=== PATIENT | male | born 1945 | race Caucasian/White ===

== ENCOUNTER 2020-08-01 13:48 | Inpatient (IN) | payer MEDICARE ==
[~2020-08-01] VITALS: Ht 175.3 cm; Wt 134.3 kg
[2020-08-01] MEDS ORDERED: SODIUM CHLORIDE 0.9% 1000ML 1,000 ML IV STA (14:05)
[2020-08-01 14:45] LABS: BASOPHILS # (AUTO) 0.1 (0.0-0.1); BASOPHILS % 0.7 % (0.0-1.0); EOSINOPHILS # (AUTO) 0.2 (0.0-0.4); EOSINOPHILS % 2.5 % (0.0-6.0); HEMATOCRIT 41.5 % (38.2-49.6); HEMOGLOBIN 13.7 g/dL (14.0-18.0); LYMPHOCYTES # (AUTO) 1.7 (1.0-3.2); LYMPHOCYTES % 19.5 % (18.0-39.1); MONOCYTES # (AUTO) 0.8 (0.2-0.8); MONOCYTES % 9.1 % (4.4-11.3); NEUTROPHILS % 67.9 % (38.7-80.0); PLATELET COUNT 146 x10e3/uL (140-360); RED BLOOD COUNT 4.15 x10e6/uL (4.3-5.7); RED CELL DISTRIBUTION WIDTH 13.7 % (11.7-14.4)
[2020-08-01] MEDS ORDERED: SODIUM CHLORIDE 0.9% 500ML 500 ML IV ONE (14:45)
[2020-08-01] MEDS ORDERED: PROAIR DIGIHAL90 MCG INH (14:59)
[2020-08-01] MEDS ORDERED: METFORMIN HCL500 M1 PO (14:59)
[2020-08-01] MEDS ORDERED: FUROSEMIDE40 MG PO (14:59)
[2020-08-01] MEDS ORDERED: PRAMIPEXOLE DIHY1 MG PO (14:59)
[2020-08-01] MEDS ORDERED: NORCO 10-325 T1 EACH PO (14:59)
[2020-08-01] MEDS ORDERED: ALLOPURINOL300 MG PO (14:59)
[2020-08-01] MEDS ORDERED: ZYTIGA250 MG PO (14:59)
[2020-08-01] MEDS ORDERED: DULOXETINE HCL20 MG PO (14:59)
[2020-08-01] MEDS ORDERED: CLONAZEPAM1 MG PO (14:59)
[2020-08-01] MEDS ORDERED: ESCITALOPRAM OX10 MG PO (14:59)
[2020-08-01] MEDS ORDERED: PREDNISONE5 MG PO (14:59)
[2020-08-01 15:02] LABS: ALANINE AMINOTRANSFERASE 13 IU/L (0-55); ALBUMIN/GLOBULIN RATIO 1.2 (0.8-2.0); ALKALINE PHOSPHATASE 54 IU/L (40-150); ANION GAP 15.9 mmol/L (8-16); BLOOD UREA NITROGEN 22 mg/dL (7-26); BUN/CREATININE RATIO 24 (6-25); CALCIUM 9.2 mg/dL (8.4-10.2); CARBON DIOXIDE 25 mmol/L (22-29); CHLORIDE 103 mmol/L (98-107); CREATINE KINASE 184 IU/L (30-200); CREATININE, SERUM 0.92 mg/dL (0.72-1.25); EST GLOMERULAR FILTRATION RATE > 60 ML/MIN (60-); GLUCOSE 100 mg/dL (74-118); MAGNESIUM 1.8 MG/DL (1.3-2.1); POTASSIUM 3.9 mmol/L (3.5-5.1); SODIUM 140 mmol/L (136-145)
--- NOTE | 2020-08-01 15:34 | Diagnostic Imaging Report ---
Exam: Head CT without contrast History: Trauma, fall Comparison studies: None Technique: Axial images were obtained from the skull base to the vertex. Coronal and sagittal images reconstructed from the axial data. Dose modulation, iterative reconstruction, and/or weight based adjustment of the mA/kV was utilized to reduce the radiation dose to as low as reasonably achievable. Radiation dose: Total DLP: 1376 mGy*cm. Estimated effective dose: DLP x 0.015 Intravenous contrast: None Findings: Scalp: No abnormalities. Bones: Few small cirrhotic lesion such as that in the basisphenoid clivus on the left and in the bilateral occipital condyles. No fracture. Brain sulci: Prominent. Ventricles: Moderate compensatory dilatation. No hydrocephalus. Extra-axial spaces: No masses, no fluid collection. Parenchyma: No mass, acute hemorrhage or acute or chronic cortical insults. Ill-defined and confluent hypodensities in the supratentorial white matter are nonspecific but are most compatible with chronic microvascular ischemic changes. Sellar/suprasellar region: No abnormalities. Craniocervical junction: Patent foramen magnum. No Chiari one malformation. Incidental findings: Bilateral intraocular lens replacements. Atherosclerotic calcifications in the carotid siphons. IMPRESSION: 1. No acute abnormalities. 2. Moderate generalized parenchymal volume loss. 3. Moderate microvascular ischemic changes. 4. A few scattered sclerotic bone lesions. Differential includes metastasis. Bone metastases from a prostate malignancy are a consideration in a male patient of this age. Signed by: Dr. Paco Galvan M.D. on 08/01/2020 3:31 PM
[2020-08-01] MEDS ORDERED: ALBUTEROL/IPRATROPIUM 3 ML NEB NEB NR (15:45)
--- NOTE | 2020-08-01 15:46 | Diagnostic Imaging Report ---
X-ray single view of the pelvis HISTORY: Pain. COMPARISON: None available. FINDINGS: Bones/joints: No radiographic evidence of an acute fracture or dislocation. The sacroiliac joints are symmetric. No pubic symphyseal widening. Soft tissues no focal soft tissue abnormality. IMPRESSION: No radiographic evidence of acute fracture or dislocation. However, if patient has difficulty bearing weight, an MRI of the affected hip should be considered to evaluate for occult fracture. Signed by: Sena Lee MD on 08/01/2020 3:43 PM
--- NOTE | 2020-08-01 15:46 | Diagnostic Imaging Report ---
History: Trauma, fall Comparison studies: None Technique: Axial images were obtained through the cervical region. Coronal and sagittal images reconstructed from the axial data. Dose modulation, iterative reconstruction, and/or weight based adjustment of the mA/kV was utilized to reduce the radiation dose to as low as reasonably achievable. Intravenous contrast: None Findings: Atlantoaxial articulation: Intact. Alignment: Reversal the usual cervical lordotic curvature centered at C4. Cervicomedullary junction: No abnormalities. The foramen magnum is patent. Soft tissues: No gross acute abnormalities. Vertebrae: A few scattered cirrhotic lesions are present in the cervical and included upper thoracic spine. No acute fracture. Chronic anterior wedge deformities with mild vertebral body height loss at C5 and C6. Degenerative changes: Disc degeneration, mild from C2 to C4, moderate from C5 to T1. Advanced multilevel facet arthrosis. Multilevel uncovertebral and facet arthrosis result in multilevel foraminal stenosis which is severe on the right at C2-C3, severe right and moderate left at C3-C4, moderate right at C4-C5, moderate right and mild left at C5-C6 and mild to moderate on the left at C6-C7. No significant canal stenosis. Additional findings: Scattered calcified atherosclerosis. Sclerotic lesions present in the bilateral occipital condyles and along the posterior wall the left exit foramen. IMPRESSION: 1. No acute cervical spine abnormalities. 2. Multilevel degenerative changes as described. 3. Multiple scattered sclerotic osseous lesions concerning for metastasis. Metastases from a prostate malignancy are consideration in a male patient this age. Ligament, spinal cord and or vascular abnormalities cannot be excluded on the basis of this examination Signed by: Dr. Paco Galvan M.D. on 08/01/2020 3:43 PM
--- NOTE | 2020-08-01 15:47 | Emergency Department Note ---
History of Present Illnes History of Present Illness Chief Complaint: COVID PUI History of Present Illness This is a 75 year old male Patient has been fatigued for the last week and has fallen a few times. He fell last night and hit his right elbow, which has some bruising. Patient states he got dizzy last night and blacked out when he fell. Family came to house and he was still on floor, they helped him up and he became dizzy and fell again. He complains of headache, right elbow, and bilateral hip pain. Historian: Patient Arrival Mode: [facility] Treatment PRECISION GRINDER EXTERNAL: See EMS Report Painter Plate Required: No Onset (how long ago): week(s) Location: head, right elbow, bilat hips Quality: pain Radiation: Reports non-radiation Severity: moderate Onset quality: sudden Timing of current episode: intermittent Progression: waxing and waning Chronicity: new Context: Denies recent illness Relieving factors: none Exacerbating factors: none Associated symptoms: Reports cough, Reports fever/chills, Reports nausea/vomiting, Reports shortness of breath Past Medical/Family History Physician Review I have reviewed the patient's past medical and family history. Any updates have been documented here. Past Medical History Recent Fever: No Clinical Suspicion of Infectio: No New/Unexplained Change in Ment: No Past Medical History: Diabetes, Cancer Other Medical History: restless leg, Bone cancer radiation and currently on chemo. Past Surgical History: None Social History Smoking Cessation: Unknown if ever smoked Counseling Performed: No Alcohol Use: None Any Illegal Drug Use: No TB Exposure/Symptoms: No Physically hurt or threatened: No Family History Family history of heart diseas: No Other Any Pre-Existing Lines (PICC,: No Review of Systems Review of Systems Constitutional: Reports as per HPI, Reports weakness EENTM: Reports no symptoms Cardiovascular: Reports no symptoms Respiratory: Reports no symptoms Gastrointestinal: Reports no symptoms Genitourinary: Reports no symptoms Musculoskeletal: Reports as per HPI, Reports joint pain Integumentary: Reports no symptoms Neurological: Reports as per HPI, Reports headache Psychological: Reports no symptoms Endocrine: Reports no symptoms Hematological/Lymphatic: Reports no symptoms Physical Exam Related Data Allergies: Coded Allergies: No Known Allergies (Unverified , 08/01/20) Triage Vital Signs Vital Signs Date Time Temp Pulse Resp B/P (MAP) Pulse Ox O2 Delivery O2 Flow Rate FiO2 08/01/20 13:55 99.6 106 16 152/70 96 Room Air Vital signs reviewed: Yes Physical Exam CONSTITUTIONAL Constitutional: Present well-developed, Present well-nourished, Present obese HENT HENT: Present normocephalic, Present atraumatic, Present oropharynx clear/moist, Present nose normal HENT L/R: Present left TM normal, Present right TM normal, Present left canal normal, Present right canal normal, Present left ext ear normal, Present right ext ear normal EYES Eyes: Reports PERRL, Reports conjunctivae normal NECK Neck: Present ROM normal, Present supple, Present other (no midline tenderness) PULMONARY Pulmonary: Present effort normal, Present breath sounds normal CARDIOVASCULAR Cardiovascular: Present regular rhythm, Present heart sounds normal, Present capillary refill normal, Present normal rate GASTROINTESTINAL Abdominal: Present soft, Present nontender, Present bowel sounds normal; Absent tender GENITOURINARY Genitourinary: Present exam deferred SKIN Skin: Present warm, Present dry MUSCULOSKELETAL Musculoskeletal: Present ROM normal, Present other (mild swelling right elbow and tender, mild bilat hip tenderness, pelvis stable) NEUROLOGICAL Neurological: Present alert, Present oriented x 3, Present no gross motor or sensory deficits, Present weakness (4/5 str throughout); Absent cranial nerve deficit, Absent sensory deficit PSYCHOLOGICAL Psychological: Present mood/affect normal, Present judgement normal Results Laboratory Result Diagram: 08/01/20 1430 08/01/20 1430 Laboratory Laboratory Tests Test 08/01/20 14:30 08/01/20 14:16 White Blood Count 8.83 x10e3/uL (4.8-10.8) Red Blood Count 4.15 x10e6/uL (4.3-5.7) Hemoglobin 13.7 g/dL (14.0-18.0) Hematocrit 41.5 % (38.2-49.6) Mean Corpuscular Volume 100.0 fL (81-99) Mean Corpuscular Hemoglobin 33.0 pg (28-32) Mean Corpuscular Hemoglobin Concent 33.0 g/dL (31-35) Red Cell Distribution Width 13.7 % (11.7-14.4) Platelet Count 146 x10e3/uL (140-360) Neutrophils (%) (Auto) 67.9 % (38.7-80.0) Lymphocytes (%) (Auto) 19.5 % (18.0-39.1) Monocytes (%) (Auto) 9.1 % (4.4-11.3) Eosinophils (%) (Auto) 2.5 % (0.0-6.0) Basophils (%) (Auto) 0.7 % (0.0-1.0) Neutrophils # (Auto) 6.0 (2.1-6.9) Lymphocytes # (Auto) 1.7 (1.0-3.2) Monocytes # (Auto) 0.8 (0.2-0.8) Eosinophils # (Auto) 0.2 (0.0-0.4) Basophils # (Auto) 0.1 (0.0-0.1) Absolute Immature Granulocyte (auto 0.03 x10e3/uL (0-0.1) Sodium Level 140 mmol/L (136-145) Potassium Level 3.9 mmol/L (3.5-5.1) Chloride Level 103 mmol/L (98-107) Carbon Dioxide Level 25 mmol/L (22-29) Anion Gap 15.9 mmol/L (8-16) Blood Urea Nitrogen 22 mg/dL (7-26) Creatinine 0.92 mg/dL (0.72-1.25) Estimat Glomerular Filtration Rate > 60 ML/MIN (60-) BUN/Creatinine Ratio 24 (6-25) Glucose Level 100 mg/dL (74-118) Calcium Level 9.2 mg/dL (8.4-10.2) Magnesium Level 1.8 MG/DL (1.3-2.1) Total Bilirubin 1.0 mg/dL (0.2-1.2) Aspartate Amino Transf (AST/SGOT) 22 IU/L (5-34) Alanine Aminotransferase (ALT/SGPT) 13 IU/L (0-55) Alkaline Phosphatase 54 IU/L (40-150) Creatine Kinase 184 IU/L (30-200) Creatine Kinase MB 2.20 ng/mL (0-5.0) Troponin I 0.013 ng/mL (0-0.300) Total Protein 7.3 g/dL (6.5-8.1) Albumin 4.0 g/dL (3.5-5.0) Globulin 3.3 g/dL (2.3-3.5) Albumin/Globulin Ratio 1.2 (0.8-2.0) Lab results reviewed: Yes Imaging Imaging results reviewed: Yes Procedures 12 Lead ECG Interpretation ECG Interpretation : ECG: ECG 1 Painter Plate: Interpreted by ED physician Date: Aug 01, 2020 Time: 13:56 Rhythm: sinus tachycardia Rate: tachycardia BPM: 107 QRS axis: normal ST segments normal: Yes Clinical Impression: non-specific ECG Assessment & Plan Medical Decision Making MDM weakness, falls, syncope - CBC, CHEM, ECG, CARDIACS, UA/CX, BLOOD CX'S, CXR, CT BRAIN/C-SPINE, XRAY PELVIS & RIGHT ELBOW, COVID SWAB - EVAL FOR SEPSIS, DEHYDRATION, RENAL INSUFF, CEREBRAL BLEED, CERV SPINE FX, PELVIS/HIP FX, PNEUMONIA, STEMI/NSTEMI, ELECTROLYTE ABNL, COVID19 Reassessment Reassessment ADMIT TO DR VICTOR - ([facility] PT) Assessment & Plan Final Impression: (1) Syncope (2) Falls Depart Disposition: ADMITTED Last Vital Signs Date Time Temp Pulse Resp B/P (MAP) Pulse Ox O2 Delivery O2 Flow Rate FiO2 08/01/20 13:55 99.6 106 16 152/70 96 Room Air Home Meds Reported Medications Abiraterone Acetate (ZYTIGA) 250 Mg Tablet, 250 MG PO DAILY 08/01/20 Hydrocodone Bit/Acetaminophen (NORCO 10-325 TABLET) 1 Each Tablet, 1 TAB PO Q4H PRN for SEVERE PAIN (7-10), TAB 08/01/20 Allopurinol (ALLOPURINOL) 300 Mg Tablet, 300 MG PO DAILY, #30 TAB 08/01/20 Escitalopram Oxalate (ESCITALOPRAM OXALATE) 10 Mg Tablet, 1 TAB PO DAILY 08/01/20 Prednisone (PREDNISONE) 5 Mg Tablet, 1 TAB PO BID 08/01/20 Pramipexole Di-Hcl (PRAMIPEXOLE DIHYDROCHLORIDE) 1 Mg Tablet, 2 TAB PO HS 08/01/20 Metformin Hcl (METFORMIN HCL ER) 500 Mg Tab.er.24h, 2 TAB PO HS 08/01/20 Clonazepam (CLONAZEPAM) 1 Mg Tablet, 1 MG PO HS PRN for SLEEP 08/01/20 Duloxetine HCl (Duloxetine HCl) 20 Mg Capsule.dr, 2 CAP PO DAILY 08/01/20 Albuterol Sulfate (Proair Digihaler) 90 Mcg Aer.pw.bas, 2 INH INH Q4HR PRN for SHORTNESS OF BREATH 08/01/20 Furosemide (FUROSEMIDE) 40 Mg Tablet, 40 MG PO DAILY 08/01/20 Medications in the ED Sodium Chloride 1,000 ml @ 0 mls/hr Q0M STAT IV ; Start 08/01/20 at 14:05; Stop 08/01/20 at 14:31; Status DC Sodium Chloride 500 ml @ 0 mls/hr Q0M ONCE IV ; Start 08/01/20 at 14:45; Stop 08/01/20 at 14:46; Status DC Albuterol/ Ipratropium 3 ml ONCE ONCE NEB ; Start 08/01/20 at 15:45; Stop 08/01/20 at 15:46; Status UNV NIKOLE FERRARI MD Aug 01, 2020 15:47
--- NOTE | 2020-08-01 15:48 | Diagnostic Imaging Report ---
X-ray 3 views of the elbow HISTORY: Pain. COMPARISON: None available. FINDINGS: Bones: No acute displaced fracture. Osseous alignment is within normal limits. Joints: The joint spaces are well-maintained. Soft tissues: There is subcutaneous soft tissue edema of the posterior elbow. IMPRESSION: Subcutaneous soft tissue edema of the posterior elbow. No acute fracture or dislocation. Signed by: Sena Lee MD on 08/01/2020 3:44 PM
[2020-08-01 16:06] LABS: INR 1.05; PROTHROMBIN TIME 14.2 seconds (11.9-14.5)
[2020-08-01 16:06] LABS: CLARITY,URINE SL CLOUDY (CLEAR); COLOR,URINE STRAW (YELLOW)
[2020-08-01 16:07] LABS: PARTIAL THROMBOPLASTIN TIME 34.1 seconds (23.8-35.5)
[2020-08-01 16:07] LABS: BILIRUBIN,URINE SMALL (NEGATIVE); KETONES,URINE TRACE (NEGATIVE); LEUKOCYTE ESTERASE ,URINE NEGATIVE (NEGATIVE); NITRITE,URINE NEGATIVE (NEGATIVE); PROTEIN,URINE DIPSTICK 2+ (NEGATIVE); URINE UROBILINOGEN 0.2 mg/dL (0.2 - 1)
[2020-08-01 16:18] LABS: BACTERIA,URINE MANY /HPF; EPITHELIAL CELLS,URINE FEW /LPF
--- NOTE | 2020-08-01 16:28 | Diagnostic Imaging Report ---
EXAMINATION: CHEST SINGLE (PORTABLE) INDICATION: Fall COMPARISON: None FINDINGS: LINES/TUBES:None LUNGS:The lungs are well-inflated. No focal consolidation or pulmonary edema. PLEURA:No pleural effusion or pneumothorax. MEDIASTINUM:The cardiomediastinal silhouette appears normal in size and shape. BONES/SOFT TISSUES:No acute osseous injury. ABDOMEN:No free air under the diaphragm. IMPRESSION: No radiographic evidence of acute traumatic thoracic injury. No focal pneumonia or pulmonary edema. Signed by: Robles Hopper MD on 08/01/2020 4:24 PM
[2020-08-01] MEDS ORDERED: SODIUM CHLORIDE 0.9% 1000ML 1,000 ML IV SCH (16:30)
[2020-08-01] MEDS ORDERED: ALBUTEROL/IPRATROPIUM 3 ML NEB NEB PRN (16:30)
[2020-08-01] MEDS ORDERED: ONDANSETRON HCL INJ 2MG/ML 2ML 2 MG/ML VIAL IV PRN (16:30)
--- OUTSIDE RECORDS SUMMARY | 2020-08-01 16:45 | XMS REPORT | Continuity of Care Document ---
Author Author [facility] Organization [facility] Address [address] [place] [address] [place] [phone] Phone Unavailable Care Team Providers Care Dancer Or Choreographer Name Role Phone Rupinder FERRARI Attphys Unavailable Problems This patient has no known problems. Allergies, Adverse Reactions, Alerts This patient has no known allergies or adverse reactions. Medications This patient has no known medications. Procedures This patient has no known procedures. Results Test Description Test Time Test Comments Results Result Comments Source CHEST SINGLE (PORTABLE) 2020-08-01 16:24:00 [place] [address] Patient Name: REBECCA GLASER MR #: [id number] : 1945 Age/Sex: 75/M Req #: [id number] Adm Physician: Ordered by: NIKOLE FERRARI MD Report #: [id number] Location: ER Room/Bed: Procedure: [id number] DX/CHEST SINGLE (PORTABLE) Exam Date: 08/01/20 Exam Time: 1441 REPORT STATUS: Signed EXAMINATION: CHEST SINGLE (PORTABLE) INDICATION: Fall COMPARISON: None FINDINGS: LINES/TUBES:None LUNGS:The lungs are well-inflated. No focal consolidation or pulmonary edema. PLEURA:No pleural effusion or pneumothorax. MEDIASTINUM:The cardiomediastinal silhouette appears normal in size and shape. BONES/SOFT TISSUES:No acute osseous injury. ABDOMEN:No free air under the diaphragm. IMPRESSION: No radiographic evidence of acute traumatic thoracic injury. No focal pneumonia or pulmonary edema. Signed by: Britany Chan MD on 08/01/2020 4:24 PM Dictated By: BRITANY CHAN MD 23 Transcribed By: SOBEIDA on 08/01/201623 COPY TO: NIKOLE FERRARI MD ELBOW RIGHT COMPLETE 2020-08-01 15:43:00 [place] [address] Patient Name: REBECCA GLASER MR #: [id number] : 1945 Age/Sex: 75/M Req #: [id number] Adm Physician: Ordered by: NIKOLE FERRARI MD Report #: [id number] Location: ER Room/Bed: Procedure: [id number] DX/ELBOW RIGHT COMPLETE Exam Date: 08/01/20 Exam Time: 1441 REPORT STATUS: Signed X-ray 3 views of the elbow HISTORY: Pain. COMPARISON: None available. FINDINGS: Bones: No acute displaced fracture. Osseous alignment is within normal limits. Joints: The joint spaces are well-maintained. Soft tissues: There is subcutaneous soft tissue edema of the posterior elbow. IMPRESSION: Subcutaneous soft tissue edema of the posterior elbow. No acute fracture or dislocation. Signed by: Enrique Ye MD on 08/01/2020 3:44 PM Dictated By: ENRIQUE YE MD 1544 Transcribed By: SOBEIDA on 08/01/20 154 COPY TO: NIKOLE FERRARI MD PELVIS AP 1-2 VIEWS 2020-08-01 15:41:00 [facility] [address] [place], [place] [address] Patient Name: REBECCA GLASER MR #: [id number] : 1945 Age/Sex: 75/M Req #: [id number] Adm Physician: Ordered by: NIKOLE FERRARI MD Report #: [id number] Location: ER Room/Bed: Procedure: [id number] DX/PELVIS AP 1-2 VIEWS Exam Date: 08/01/20 Exam Time: 1441 REPORT STATUS: Signed X-ray single view of the pelvis HISTORY: Pain. COMPARISON: None available. FINDINGS: Bones/joints: No radiographic evidence of an acute fracture or dislocation. The sacroiliac joints are symmetric. No pubic symphyseal widening. Soft tis sues no focal soft tissue abnormality. IMPRESSION: No radiographic evidence of acute fracture or dislocation. However, if patient has difficulty bearing weight, an MRI of the affected hip should be considered to evaluate for occult fracture. Signed by: Enrique Ye MD on 08/01/2020 3:43 PM Dictated By: ENRIQUE YE MD 1543 Transcribed By: SOBEIDA on 08/01/20 154 COPY TO: NIKOLE FERRARI MD CT CERVICAL SPINE WO 2020-08-01 15:25:00 [place] [address] [place], [place] [address] Patient Name: REBECCA GLASER MR #: [id number] : 1945 Age/Sex: 75/M Req #: [id number] Adm Physician: Ordered by: NIKOLE FERRARI MD Report #: [id number] Location: Room/Bed: Procedure: [id number] CT/CT CERVICAL SPINE WO Exam Date: Exam Time: REPORT STATUS: Signed History: Trauma, fall Comparison studies: None Technique: Axial images were obtained through the cervical region. Coronal and sagittal images reconstructed from the axial data. Dose modulation, iterative reconstruction, and/or weight based adjustment of the mA/kV was utilized to reduce the radiation dose to as low as reasonably achievable. Intravenous contrast: None Findings: Atlantoaxial articulation: Intact. Alignment: Reversal the usual cervical lordotic curvature centered at C4. Cervicomedullary junction: No abnormalities. The foramen magnum is patent. Soft tissues: No gross acute abnormalities. Vertebrae: A few scattered cirrhotic lesions are present in the cervical and included upper thoracic spine. No acute fracture. Chronic anterior wedge deformities with mild vertebral body height loss at C5 and C6. Degenerative changes: Disc degeneration, mild from C2 to C4, moderate from C5 to T1. Advanced multilevel facet arthrosis. Multilevel uncovertebral and facet arthrosis result in multilevel foraminal stenosis which is severe on the right at C2-C3, severe right and moderate left at C3-C4, moderate right at C4-C5, moderate right and mild left at C5-C6 and mild to moderate on the left at C6-C7. No significant canal stenosis. Additional findings: Scattered calcified atherosclerosis. Sclerotic lesions present in the bilateral occipital condyles and along the posterior wall the left exit foramen. IMPRESSION: 1. No acute cervical spine abnormalities. 2. Multilevel degenerative changes as described. 3. Multiple scattered sclerotic osseous lesions concerning for metastasis. Metastases from a prostate malignancy are consideration in a male patient this age. Ligament, spinal cord and or vascular abnormalities cannot be excluded on the basis of this examination Signed by: Dr. Selene Galvan M.D. on 08/01/2020 3:43 PM Dictated By: SELENE GALVAN MD 42 Transcribed By: SOBEIDA on 08/01/201542 COPY TO: NIKOLE FERRARI MD CT BRAIN WO 2020-08-01 15:22:00 [place] [address] Patient Name: REBECCA GLASER MR #: [id number] : 1945 Age/Sex: 75/M Req #: [id number] Adm Physician: Ordered by: NIKOLE FERRARI MD Report #: [id number] Location: ER Room/Bed: Procedure: [id number] CT/CT BRAIN WO Exam Date: Exam Time: REPORT STATUS: Signed Exam: Head CT without contrast History: Trauma, fall Comparison studies: None Technique: Axial images were obtained from the skull base to the vertex. Coronal and sagittal images reconstructed from the axial data. Dose modulation, iterative reconstruction, and/or weight based adjustment of the mA/kV was utilized to reduce the radiation dose to as low as reasonably achievable. Radiation dose: Total DLP: 1376 mGy*cm. Estimated effective dose: DLP x 0.015 Intravenous contrast: None Findings: Scalp: No abnormalities. Bones: Few small cirrhotic lesion such as that in the basisphenoid clivus on the left and in the bilateral occipital condyles. No fracture. Brain sulci: Prominent. Ventricles: Moderate compensatory dilatation. No hydrocephalus. Extra-axial spaces: No masses, no fluid collection. Parenchyma: No mass, acute hemorrhage or acute or chronic cortical insults. Ill-defined and confluent hypodensities in the supratentorial white matter are nonspecific but are most compatible with chronic microvascular ischemic changes. Sellar/suprasellar region: No abnormalities. Craniocervical junction: Patent foramen magnum. No Chiari one malformation. Incidental findings: Bilateral intraocular lens repl acements. Atherosclerotic calcifications in the carotid siphons. IMPRESSION: 1. No acute abnormalities. 2. Moderate generalized parenchymal volume loss. 3. Moderate microvascular ischemic changes. 4. A few scattered sclerotic bone lesions. Differential includes metastasis. Bone metastases from a prostate malignancy are a consideration in a male patient of this age. Signed by: Dr. Selene Galvan M.D. on 08/01/2020 3:31 PM Dictated By: SELENE GALVAN MD 1531 Transcribed By: SOBEIDA on 08/01/20 1531 COPY TO: NIKOLE FERRARI MD
[2020-08-01] MEDS: FAMOTIDINE 20 MG/2 ML VIAL IV SCH (17:12)
--- NOTE | 2020-08-01 18:45 | NUR ---
PATIENT RECEIVED FROM ER PER STRETCHER. ALERT AND VERBALLY RESPONSIVE. DENIED PAIN AT THIS TIME. TELEMETRY B[address] ASSISTED TO BED. C/O BEING HUNGRY, SNACK PROVIDED. CALL LIGHT AT REACH, BED ALARM ACTIVATED.
--- NOTE | 2020-08-01 19:16 | NUR ---
BED SIDE REPORT GIVEN TO ON COMING NURSE. PATIENT IN BED RESTING WITH CALL LIGHT AT REACH.
--- NOTE | 2020-08-01 19:30 | NUR ---
Report received from mitchell RN. Pt was transferred from ER prior to my arrival. Pt alert, awake, and oriented x 3. Vitals stable. IV intact and patent. Oriented pt to call light and bed. Informed pt to call for assistance and not to get out of bed alone. Understanding verbalized. Call light within reach. No needs verbalized at this time.
[2020-08-01 20:00] VITALS: BP 133/71
[2020-08-01 20:05] VITALS: BP 133/71
[2020-08-01] MEDS ORDERED: DEXTROSE 50% SYRINGE 50 ML IV PRN (20:15)
[2020-08-01] MEDS ORDERED: CLONAZEPAM 1 MG TAB PO PRN (20:15)
[2020-08-01] MEDS: INSULIN LISPRO 100 UNIT/1 ML 3ML VIAL SQ SCH (20:47)
[2020-08-01] MEDS: PRAMIPEXOLE DIHYDROCHLORIDE 1 MG TAB PO SCH (20:49)
[2020-08-01] MEDS ORDERED: TRIAMCINOLONE A15 G4 TP (20:59)
[2020-08-01] MEDS ORDERED: CALTRATE 600 +1 EAC1 PO (20:59)
[2020-08-01] MEDS ORDERED: NORCO 5-325 TA1 EACH PO (20:59)
[2020-08-01] MEDS ORDERED: MUPIROCIN22 GM TOP (20:59)
[2020-08-01 21:00] VITALS: BP 133/71
[2020-08-02] VITALS (8 sets, daily range): BP systolic 110–140; BP diastolic 56–84
[2020-08-02 00:31] LABS: CREATINE KINASE MB 2.1 ng/mL (0-5.0)
[2020-08-02] MEDS: FAMOTIDINE 20 MG/2 ML VIAL IV SCH (05:05)
[2020-08-02] MEDS: HYDROCODONE/APAP 10MG-325MG TAB PO PRN (06:11)
[2020-08-02] MEDS ORDERED: PRESERVISION A1 EACH PO (06:25)
--- NOTE | 2020-08-02 06:35 | NUR ---
Pt tested positive for COVID-19. Dr. Osorio's production operations engineer provider notified. New orders to consult Dr. Cade.
[2020-08-02 06:37] LABS: BASOPHILS % 0.7 % (0.0-1.0); EOSINOPHILS # (AUTO) 0.2 (0.0-0.4); EOSINOPHILS % 3.9 % (0.0-6.0); HEMATOCRIT 37.9 % (38.2-49.6); HEMOGLOBIN 12.4 g/dL (14.0-18.0); LYMPHOCYTES # (AUTO) 1.5 (1.0-3.2); MEAN CORPUSCULAR HEMOGLOBIN 33.1 pg (28-32); MEAN CORPUSCULAR HGB CONC 32.7 g/dL (31-35); MEAN CORPUSCULAR VOLUME 101.1 fL (81-99); MONOCYTES # (AUTO) 0.6 (0.2-0.8); MONOCYTES % 10.7 % (4.4-11.3); NEUTROPHILS # (AUTO) 3.2 (2.1-6.9); NEUTROPHILS % 57.3 % (38.7-80.0); PLATELET COUNT 141 x10e3/uL (140-360); RED BLOOD COUNT 3.75 x10e6/uL (4.3-5.7); RED CELL DISTRIBUTION WIDTH 13.6 % (11.7-14.4)
[2020-08-02 06:57] LABS: ALANINE AMINOTRANSFERASE 11 IU/L (0-55); ALBUMIN 3.4 g/dL (3.5-5.0); ALBUMIN/GLOBULIN RATIO 1.2 (0.8-2.0); ALKALINE PHOSPHATASE 44 IU/L (40-150); ANION GAP 13.7 mmol/L (8-16); BLOOD UREA NITROGEN 14 mg/dL (7-26); BUN/CREATININE RATIO 18 (6-25); CALCIUM 8.2 mg/dL (8.4-10.2); CARBON DIOXIDE 28 mmol/L (22-29); CHLORIDE 104 mmol/L (98-107); CHOL/HDL RATIO 4.2 (3.9-4.7); CHOLESTEROL 126 MD/DL (0-199); CREATININE, SERUM 0.78 mg/dL (0.72-1.25); EST GLOMERULAR FILTRATION RATE > 60 ML/MIN (60-); GLUCOSE 113 mg/dL (74-118); HDL CHOLESTEROL 30 MG/DL (40-60); LDL CHOLESTEROL 53 MG/DL (60-130); POTASSIUM 3.7 mmol/L (3.5-5.1); SODIUM 142 mmol/L (136-145); TRIGLYCERIDES 214 MG/DL (0-149)
[2020-08-02 07:16] LABS: CREATINE KINASE MB 2.2 ng/mL (0-5.0)
[2020-08-02] MEDS: INSULIN LISPRO 100 UNIT/1 ML 3ML VIAL SQ SCH ×4 (07:30→20:28)
--- NOTE | 2020-08-02 08:14 | NUR ---
Patient up in bed , alert with no distress. denies any SOB, ON O2 2L NC, Keep monitoring
[2020-08-02] MEDS: ASPIRIN 81 MG ENTERIC COATED PO SCH (08:53)
[2020-08-02] MEDS ORDERED: PREDNISONE 5 MG TAB PO SCH (09:00)
[2020-08-02] MEDS ORDERED: ACETAMINOPHEN 325 MG TAB PO PRN (10:00)
[2020-08-02] MEDS ORDERED: ONDANSETRON HCL 4 MG ORAL DISINTEGRATING TAB PO PRN (11:15)
--- NOTE | 2020-08-02 12:22 | NUR ---
INFECTIOUS DISEASE CONSULT NOTE DR. JOSSY RUEDA HPI: very pleasant 75 year old male who reported fatigue and maliase for the last approx 8 days. The pt reports falling and hitting his right elbow, with not ed bruising after being "weak". The patient reported dizziness and "blacking out." He was found to be COVID positive. Denies prior COVID positive test. PMH: Bone cancer currently on Chemo, T2DM, Obesity, HTN Family Hx: cancer, HTN Social hx: denies smoking drinking Surgical hx: denies ROS: + fatigue, SOB, Cough ALL 14 POINT ROS NEG UNLESS OTHERWISE NOTED PHYSICAL EXAM: VS: per chart GENERAL: awake, alert HEENT: normocephalic atraumatic CV: s1. s2, no s3, s4 CHEST: rhonchi, diminished, on oxygen ABD: obese, soft, non-tender EXT: moves all, edema, no joint swelling PSYCH: intact, no anxiety LABS: per chart RADIOLOGY: per chart IMPRESSION: COVID 19 Cancer currently on chemo HTN Obesity T2DM Hypoxia PLAN: RMSV, Rocephin, Azithromycin Vitamins, Decadron Supportive care currently on 2LPM n/c RMSV ATTESTATION REMDESIVIR discussed with patient and daughter. EUA information provided to the patient. The patient understands that RMSV is a drug approved by the FDA for maryuri rgency use for the treatment of COVID 19. He understands at anytime he can stop the treatment. All questions were addressed. Discussed with daughter Randa Zhong MSN, [employer], AGACNP-BC discussed with Jossy Rueda M.D
[2020-08-02] MEDS ORDERED: SODIUM CHLORIDE 0.9% 250ML 250 ML ONE (13:40)
[2020-08-02] MEDS ORDERED: LIDOCAINE HCL 2% JELLY 5 ML TUBE TOP PRN (13:45)
[2020-08-02] MEDS: AZITHROMYCIN 500MG/NS 250 ML 250 ML IV SCH (13:46)
[2020-08-02] MEDS ORDERED: REMDESIVIR 200MG/NS 100ML 200 MG IV ONE (14:00)
--- NOTE | 2020-08-02 14:04 | NUR ---
Nutrition Screen Note RD Recommendation for Physician: -Continue diet as ordered Plan of Care: RD following, monitoring for tolerance and adequacy Nutrition reason for involvement: MST Primary Diagnose(s): COVID +, fall, weakness, syncope PMH: Bone cancer currently on Chemo, T2DM, Obesity, HTN Ht: 69in Wt: 296.19lb BMI: 43.7kg/m2 IBW: 160lb +/- 10% RD Assessment: Chart reviewed. Labs and meds reviewed. 75yo M, who was admitted for fatigue and malaise. +COVID. Pt reports good appetite without any nausea or vomiting. LBM 10/. Pt has some intentional weight loss through lifestyle changes. Pt denies any chewing difficulty but complains of having trouble with swallowing communicated to RN. Will continue to follow. Current Diet: ADA 1800 Malnutrition Evaluation The patient does not meet criteria for a specified degree of malnutrition at this time. Will re-evaluate at follow-up as appropriate. Diet Education Needs Assessment: Diet education not indicated. Pt has recently spoke with a RD at [facility] for weight loss tips. Nutrition Care Level: low Signed: Mabel Jaime, MS, RD, LD
--- NOTE | 2020-08-02 14:22 | Consultation ---
DATE OF CONSULTATION: CHIEF COMPLAINT: Frequent falls and positive COVID-19 test. HISTORY OF PRESENT ILLNESS: The patient is a 75-year-old man. He has a history of some intermittent respiratory problems over many years. He used a rescue inhaler at times. He also has some chronic leg swelling and went to see a condominium association manager several days ago. He was scheduled for some tests. The patient has been feeling more fatigued over the past several weeks. He also has noted a sore throat. He says that he fell three or four times. On the most recent fall, he injured his knees as well as his elbow and his hip. He came to the emergency department and had x-rays. He also had a COVID test that was positive. PAST MEDICAL HISTORY: 1. History of some type of cancer, requiring chemotherapy. 2. Diabetes mellitus. 3. Hypertension. 4. Chronic leg edema. SURGICAL HISTORY: The patient denies any prior surgeries. SOCIAL HISTORY: The patient is not a smoker. He is not a drinker. FAMILY HISTORY: Family history is significant for cancer and hypertension. ALLERGIES: NO KNOWN DRUG ALLERGIES. REVIEW OF SYSTEMS: The patient is not having any fevers. There is no headache or neck pain. He has no chest pain. He does note some sore throat and difficulty swallowing. He has some dyspnea on exertion, but this is longstanding. He occasionally uses rescue inhaler. There is no abdominal pain. There is no nausea or vomiting. He does have some chronic leg edema. PHYSICAL EXAMINATION: VITAL SIGNS: Blood pressure is 113/60, saturation is 98% on 2 L. The pulse is 93. HEENT: Shows no facial swelling or erythema. LYMPHATIC: Shows no submandibular, cervical, or supraclavicular adenopathy. CARDIAC: Reveals regular rate and rhythm with normal S1 and S2. LUNGS: Auscultation of lungs reveals crackles at the bases. There is no wheezing. ABDOMEN: Soft and nontender. There is no rebound or guarding. EXTREMITIES: Shows 2 to 3+ leg edema with skin changes suggestive of chronic venous stasis. LABORATORY DATA: White blood cell count is 5.6, hemoglobin is 12.4. Platelet count is 141. The BUN to creatinine ratio is normal. The other electrolytes are within normal limits. RADIOGRAPHIC DATA: Pelvic x-ray shows no acute fracture or dislocation. Elbow x-ray shows subcutaneous soft tissue edema, but no acute fracture. Chest x-ray shows no acute disease changes. Cervical spine x-ray shows no acute abnormalities. There are some sclerotic osseous lesions concerning for metastasis. CT scan of the brain shows no acute abnormalities. There are some sclerotic bone lesions. IMPRESSION: 1. Positive COVID-19 test and viral pneumonia. 2. Metastatic cancer involving multiple bones, suggestive of possible prostate malignancy. 3. Hypertension. 4. Diabetes. PLAN: 1. The patient will start remdesivir. 2. Rocephin and Zithromax. 3. Nystatin swish and swallow for sore throat. 4. Continue antireflux medications. 5. Consider Hematology evaluation for metastatic cancer. Howard Killian MD [facility]/SHAY /[id number]
[2020-08-02] MEDS: CEFTRIAXONE SOD 1 GM/NS 50 ML 50 ML IV SCH (15:30)
[2020-08-02] MEDS ORDERED: LIDOCAINE HCL 2% 30 ML TUBE TOP PRN (16:15)
[2020-08-02] MEDS: FAMOTIDINE 20 MG TAB PO SCH (16:26)
[2020-08-02] MEDS: NYSTATIN SUSPENSION 5 ML UDC PO SCH ×2 (16:26→20:27)
--- NOTE | 2020-08-02 18:09 | NUR ---
Assisted patient to restroom, he walked with walker, denies any SOB, No distress noted, call light in reach
[2020-08-02] MEDS: PRAMIPEXOLE DIHYDROCHLORIDE 1 MG TAB PO SCH (20:27)
[2020-08-02] MEDS ORDERED: ALBUTEROL SULFATE HFA 8GM INHALATION AEROSOL INH PRN (21:30)
[2020-08-02] MEDS ORDERED: BENZONATATE 100 MG CAP PO PRN (21:30)
[2020-08-03] VITALS (7 sets, daily range): BP systolic 117–127; BP diastolic 60–76
[2020-08-03] MEDS: FAMOTIDINE 20 MG TAB PO SCH ×3 (04:30→16:48)
[2020-08-03] MEDS: NYSTATIN SUSPENSION 5 ML UDC PO SCH ×6 (05:00→21:06)
[2020-08-03] MEDS: INSULIN LISPRO 100 UNIT/1 ML 3ML VIAL SQ SCH ×4 (07:30→21:06)
[2020-08-03] MEDS: CALCIUM CARBONATE PO SCH (08:51)
[2020-08-03] MEDS: OXYBUTYNIN CHLORIDE XL 5 MG TAB PO SCH (08:51)
[2020-08-03] MEDS: ENOXAPARIN SOD INJ 40 MG/0.4 ML SYR SC SCH ×2 (08:51→16:49)
[2020-08-03] MEDS: FUROSEMIDE 40 MG TAB PO SCH (08:51)
[2020-08-03] MEDS: DEXAMETHASONE SOD PHOS INJ 4 MG/ML VIAL IV SCH (08:51)
[2020-08-03] MEDS: ESCITALOPRAM OXALATE 10 MG TAB PO SCH (08:51)
[2020-08-03] MEDS: ASPIRIN 81 MG ENTERIC COATED PO SCH (08:51)
[2020-08-03] MEDS: VITAMIN D3 PO SCH (08:51)
--- NOTE | 2020-08-03 11:04 | History and Physical ---
PRIMARY CARE PHYSICIAN: Dr. Smith at [facility]. CHIEF COMPLAINT: Generalized weakness and frequent falls. HISTORY OF PRESENT ILLNESS: This is a 75-year-old male with past medical history of COPD oxygen dependent, hypertension, diabetes, depression, sleep apnea, and prostate cancer with mets to the bones, presented to the ER with complaints of increased fatigue, shortness of breath and weakness causing frequent falls for the past few weeks. He denies any chest pain, fever, chills, passing out or blacking out, or change in altered mentation. He reports having headaches for the past few days and sore throat with increased shortness of breath. He reports last night he was standing up on his bed and his legs gave out and had fallen to the ground hitting his right elbow and pelvis. CT brain showed no acute abnormalities, moderate generalized parenchymal volume loss and few scattered sclerotic bone lesions with bone metastases from a prostate malignancy. COVID-19 was positive. Chest x-ray, no focal pneumonia or pulmonary edema. He was admitted for further evaluation. PAST MEDICAL HISTORY: 1. Hypertension. 2. Diabetes type 2. 3. COPD oxygen dependent. 4. Depression. 5. Sleep apnea, CPAP at night. 6. Prostate cancer with bone metastases. PAST SURGICAL HISTORY: Denies any surgical history. FAMILY HISTORY: Unknown. SOCIAL HISTORY: He quit smoking five years ago, but prior to that had smoked two packs per day for over 20 years. No reports of alcohol or illicit drug use. Lives at home with family. ALLERGIES: NO KNOWN DRUG ALLERGIES. REVIEW OF SYSTEMS: A 10-system reviewed and negative except as reported in HPI. PHYSICAL EXAMINATION: VITAL SIGNS: Temperature 97.0, pulse is 93, respirations 24, blood pressure 113/60, pulse ox is 98% on 2 L of nasal cannula. GENERAL: Fatigued. HEENT: Normocephalic, atraumatic. NECK: Supple. LUNGS: Decreased breath sounds, wheezing throughout. CARDIOVASCULAR: Regular rate and rhythm. GI: Soft and nontender, obese. NEURO: Alert, awake and oriented x3. MUSCULOSKELETAL: Moves all extremities. 2+ edema noted in the lower extremities. SKIN: Dry. PSYCH: Calm. LABORATORY DATA: WBC 5.62, hemoglobin 12.4, hematocrit 37.9, platelets 141,000. Sodium 142, potassium 3.7, BUN is 14, creatinine 0.78, estimated GFR is greater than 60, calcium 8.2, AST 20, ALT 11, CK 114, troponin 0.017 and 0.028. Albumin 3.4, triglycerides 214, LDL 53, HDL 30. PT 14.2, INR 1.05, APTT 34.1. Urine slightly cloudy with negative leukocyte esterase, WBC, and many bacteria. Roper virus PCR is detected. IMAGING: CT brain negative for acute abnormalities, few scattered sclerotic bone lesions, bone metastases from a prostate malignancy. C-spine, no acute cervical spine abnormalities. Chest x-ray, no focal pneumonia or pulmonary edema, no acute trauma. Subcutaneous soft tissue edema of the posterior elbow, no acute fracture or dislocation noted. Pelvis x-ray shows no radiographic evidence of acute fracture or dislocation. IMPRESSION AND PLAN: 1. Syncope with recurrent falls. CT brain and C-spine noted with no acute process. Likely due to generalized weakness due to COVID-19. 2. Acute on chronic respiratory distress due to COVID-19 pneumonia. ID and Pulmonary consulted. He is started on Rocephin, azithromycin, and remdesivir. 3. Hypertension. Continue medications. 4. Diabetes. Sliding scale insulin. 5. Prostate cancer with mets to the bones. We will continue with his oral chemo drugs. We will follow up with his sales representative printing paper. 6. Generalized edema. We will check BNP and echocardiogram. We will continue on his Lasix. 7. History of sleep apnea. CPAP at night. 8. Depression. Continue home medications. 9. Deep vein thrombosis prophylaxis. Lovenox subcu. Dictated by TERNA Wilkinson Joycelyn Osorio MD MY/MODL /[id number]
[2020-08-03] MEDS: AZITHROMYCIN 500MG/NS 250 ML 250 ML IV SCH (11:45)
[2020-08-03] MEDS: CEFTRIAXONE SOD 1 GM/NS 50 ML 50 ML IV SCH (13:15)
--- NOTE | 2020-08-03 13:50 | Progress Note ---
DATE: SUBJECTIVE: The patient is improved but still complains of some lightheadedness. He is able to stand with a walker, but cannot get to the bathroom fast enough he says. He still has some pain in his legs. PHYSICAL EXAMINATION: VITAL SIGNS: Blood pressure is 123/75 and saturation is 95% on 2 L. HEENT: Shows no facial swelling or erythema. LYMPHATIC: Shows no submandibular, cervical or supraclavicular adenopathy. CARDIAC: Reveals a regular rate and rhythm with normal S1 and S2. LUNGS: Auscultation of lungs reveals rhonchorous breath sounds bilaterally. There is no wheezing. ABDOMEN: Soft and nontender. There is no rebound or guarding. EXTREMITIES: Examination of the extremities shows 3 to 4+ leg edema. There are some skin changes consistent with chronic venous stasis. LABORATORY DATA: White blood cell count is 5.6 and hemoglobin is 12.4. The platelet count is 141. The BUN to creatinine ratio is normal. The other electrolytes are within normal limits. IMPRESSION: 1. Positive COVID-19 test and viral pneumonia. 2. Metastatic prostate cancer with bony metastases. 3. Chronic lymphedema of lower extremities. 4. Diabetes requiring treatment with metformin as an outpatient. PLAN: 1. Physical therapy. 2. Complete remdesivir. 3. Complete antibiotics. 4. Complete dexamethasone. 5. Continue Lovenox. Howard Killian MD [facility]/VAUGHNL /[id number]
[2020-08-03] MEDS: REMDESIVIR 100MG/NS 100ML 100 MG IV SCH (14:07)
--- NOTE | 2020-08-03 17:00 | Progress Note ---
DATE: 08/03/2020 SUBJECTIVE: The patient is sitting up in chair. Reports improving shortness of breath, wheezing, cough, and headache. OBJECTIVE: VITAL SIGNS: Temperature 98.1, pulse is 105, respirations 20, blood pressure 123/75, and pulse ox is 95% on 2 L of nasal cannula. GENERAL: No acute distress. HEENT: Normocephalic, atraumatic. NECK: Supple. LUNGS: With decreased breath sounds, wheezing. CARDIOVASCULAR: Regular rate and rhythm. GI: Soft and nontender, obese. NEURO: Alert, awake, and oriented x3. MUSCULOSKELETAL: Moves all extremities. 2+ edema in the lower extremities. SKIN: Dry. PSYCH: Calm. LABORATORY DATA: Blood cultures negative so far. Urine culture is negative. IMPRESSION: 1. Syncope with recurrent falls. CT brain and C-spine negative for acute process. Physical therapy has been consulted. 2. [id number] respiratory distress due to COVID-19 pneumonia. Continue on Rocephin, azithromycin, remdesivir. ID and Pulmonary on the case. 3. Hypertension. 4. Diabetes. Continue sliding scale insulin. 5. Prostate cancer with mets to bones. We will continue with his oral chemo drugs and have him follow up at [facility] with his oncologist. 6. Generalized edema. Echo has been done with ejection fraction of 45% to 50%. Continue Lasix. BNP was 20.4. 7. History of sleep apnea. CPAP at night. 8. Depression. Continue home medications. 9. Morbid obesity, with BMI of 43. 10. Deep vein thrombosis prophylaxis. Lovenox subcu. Dictated by TRENA Wilkinson Joycelyn Osorio MD MY/MODL /[id number]
--- NOTE | 2020-08-03 17:17 | NUR ---
Assisted patient to restroom, not in any distress, denies any SOB, Call light in reach
[2020-08-03] MEDS: PRAMIPEXOLE DIHYDROCHLORIDE 1 MG TAB PO SCH (21:06)
[2020-08-03] MEDS: HYDROCODONE/APAP 10MG-325MG TAB PO PRN (21:07)
[2020-08-04] VITALS (8 sets, daily range): BP systolic 121–144; BP diastolic 65–77
[2020-08-04] MEDS: FAMOTIDINE 20 MG TAB PO SCH ×2 (04:30→16:45)
[2020-08-04] MEDS: NYSTATIN SUSPENSION 5 ML UDC PO SCH ×5 (05:00→21:07)
--- NOTE | 2020-08-04 06:56 | NUR ---
RECEIVED BEDSIDE SHIFT REPORT FROM OFF GOING NURSE. PATIENT IS RESTING IN BED, NO ACUTE DISTRESS NOTED AT THIS TIME. CALL LIGHT WITHIN REACH. BED IN THE LOWEST POSITION.
[2020-08-04] MEDS: INSULIN LISPRO 100 UNIT/1 ML 3ML VIAL SQ SCH ×4 (07:30→21:08)
[2020-08-04] MEDS: OXYBUTYNIN CHLORIDE XL 5 MG TAB PO SCH (09:00)
[2020-08-04] MEDS: ASPIRIN 81 MG ENTERIC COATED PO SCH (09:00)
[2020-08-04] MEDS: DEXAMETHASONE SOD PHOS INJ 4 MG/ML VIAL IV SCH (09:00)
[2020-08-04] MEDS: ESCITALOPRAM OXALATE 10 MG TAB PO SCH (09:00)
[2020-08-04] MEDS: FUROSEMIDE 40 MG TAB PO SCH (09:00)
[2020-08-04] MEDS: VITAMIN D3 PO SCH (09:00)
[2020-08-04] MEDS: CALCIUM CARBONATE PO SCH (09:00)
[2020-08-04] MEDS: ENOXAPARIN SOD INJ 40 MG/0.4 ML SYR SC SCH ×2 (09:02→16:45)
--- NOTE | 2020-08-04 09:08 | Progress Note ---
DATE: SUBJECTIVE: The patient remains afebrile. He is less dizzy, but still has some difficulty ambulating. PHYSICAL EXAMINATION: VITAL SIGNS: Blood pressure is 127/64, saturation is 99% and the pulse is 86. HEENT: Shows no facial swelling or erythema. LYMPHATIC: Shows no submandibular, cervical or supraclavicular adenopathy. CARDIAC: Reveals regular rate and rhythm with normal S1 and S2. LUNGS: Auscultation of lungs shows decreased breath sounds at the bases. There is no wheezing. ABDOMEN: Soft and nontender. There is no rebound or guarding. EXTREMITIES: Shows no leg edema or calf tenderness. There is no cyanosis or clubbing. SKIN: Shows no rashes. IMPRESSION: 1. Positive COVID-19 and viral pneumonia. 2. Metastatic prostate cancer with bony metastases. 3. Unsteadiness and frequent: falls. 4. Diabetes. 5. Chronic lymphedema. PLAN: 1. The patient to be assessed for potential fall risk along with arrangements for discharge home or discharge to a rehab facility. 2. Continue oxygen as needed. 3. Complete remdesivir. 4. Complete antibiotics. 5. Pain control. 6. Lovenox for DVT prophylaxis. Howard Killian MD [facility]/SHAY /[id number]
[2020-08-04] MEDS: AZITHROMYCIN 500MG/NS 250 ML 250 ML IV SCH (12:00)
--- NOTE | 2020-08-04 13:05 | Progress Note ---
DATE: SUBJECTIVE: Mr. Hurd is doing well. He still has shortness of breath, but he is feeling better. PHYSICAL EXAMINATION: GENERAL: He is currently alert, oriented. VITAL SIGNS: Stable, afebrile. HEENT: He is not icteric. NECK: Supple. CHEST: Clear. HEART: S1, S2. No murmurs. ABDOMEN: Soft. IMPRESSION: Coronavirus disease-2019, respiratory failure, metastatic prostate cancer, diabetes mellitus, obesity. Continue antibiotic and discontinue remdesivir. Oxygen as needed. Would benefit from rehab. Continue to finish 8 days of dexamethasone. Lovenox for now and we will follow. MD TIMOTHY Flowers/SHAY /[id number]
[2020-08-04] MEDS: CEFTRIAXONE SOD 1 GM/NS 50 ML 50 ML IV SCH (13:30)
[2020-08-04] MEDS: REMDESIVIR 100MG/NS 100ML 100 MG IV SCH (14:14)
--- NOTE | 2020-08-04 18:31 | Progress Note ---
DATE: 08/04/2020 SUBJECTIVE: The patient is sitting up in bed. Reports headache is resolved. Shortness of breath, wheezing is improving. He reports he is getting up and walking in the room with a walker. OBJECTIVE: VITAL SIGNS: Temperature 98.1, pulse is 102, respirations 22, blood pressure 144/75, pulse ox is 99% on 2 L of nasal cannula. GENERAL: No acute distress. HEENT: Normocephalic and atraumatic. NECK: Supple. LUNGS: Decreased breath sounds and wheezing. CARDIOVASCULAR: Regular rate and rhythm. GI: Soft and nontender, obese. NEURO: Alert, awake, oriented x3. MUSCULOSKELETAL: Moves all extremities. 2+ edema in the lower extremities. SKIN: Dry and discoloration in the lower extremities. PSYCH: Calm. LABORATORY DATA: Cultures, blood and urine are negative. IMPRESSION: 1. COVID-19 pneumonia. ID and Pulmonology consulted. Continue on Rocephin, azithromycin, remdesivir and dexamethasone. 2. Syncope with recurrent fall. CT brain and C-spine negative for acute process. We will continue with physical therapy, improving. 3. Acute on chronic respiratory distress, oxygen dependent at home. Continue nebs p.r.n. 4. Diabetes, continue sliding scale insulin. 5. Prostate cancer with metastasis to bone. He will continue oral chemotherapy and follow up with his oncologist at [facility]. 6. Generalized edema. Echo preliminary with EF of 45% to 50%. BNP 28.4, continue Lasix. 7. History of sleep apnea, CPAP at night. 8. Depression, continue home medications. 9. Morbid obesity with BMI of 43. 10. Discussed lifestyle modification. 11. Deep vein thrombosis prophylaxis, Lovenox subcu. PLAN: Continue current treatment for COVID, will continue physical therapy for increased stability. Dictated by Margie Zazueta, TRENA Joycelyn Osorio MD MY/MODL /[id number]
--- NOTE | 2020-08-04 19:16 | NUR ---
BEDSIDE SHIFT REPORT GIVEN TO ONCOMING NURSE. PATIENT IS IN STABLE CONDITION, NO ACUTE DISTRESS NOTED AT THIS TIME. CALL LIGHT WITHIN REACH. BED IN THE LOWEST POSITION.
[2020-08-04] MEDS: PRAMIPEXOLE DIHYDROCHLORIDE 1 MG TAB PO SCH (21:07)
[2020-08-04] MEDS: HYDROCODONE/APAP 10MG-325MG TAB PO PRN (21:08)
[2020-08-05] VITALS: BP 133/78
[2020-08-05 04:00] VITALS: BP 144/77
[2020-08-05] MEDS: FAMOTIDINE 20 MG TAB PO SCH ×2 (04:30→16:07)
[2020-08-05] MEDS: NYSTATIN SUSPENSION 5 ML UDC PO SCH ×5 (05:00→20:07)
--- NOTE | 2020-08-05 06:46 | NUR ---
RECEIVED BEDSIDE SHIFT REPORT FROM OFF GOING NURSE. PATIENT IS RESTING IN BED, NO S/S OF DISTRESS NOTED AT THIS TIME. CALL LIGHT WITHIN REACH. BED IN THE LOWEST POSITION.
[2020-08-05 07:22] LABS: BASOPHILS % 0.4 % (0.0-1.0); EOSINOPHILS % 0.1 % (0.0-6.0); HEMATOCRIT 38.5 % (38.2-49.6); HEMOGLOBIN 12.5 g/dL (14.0-18.0); LYMPHOCYTES # (AUTO) 1.8 (1.0-3.2); LYMPHOCYTES % 20.3 % (18.0-39.1); MEAN CORPUSCULAR HEMOGLOBIN 32.9 pg (28-32); MEAN CORPUSCULAR HGB CONC 32.5 g/dL (31-35); MEAN CORPUSCULAR VOLUME 101.3 fL (81-99); MONOCYTES # (AUTO) 0.8 (0.2-0.8); MONOCYTES % 9.3 % (4.4-11.3); NEUTROPHILS # (AUTO) 6.2 (2.1-6.9); NEUTROPHILS % 69.6 % (38.7-80.0); PLATELET COUNT 167 x10e3/uL (140-360); RED CELL DISTRIBUTION WIDTH 13.3 % (11.7-14.4)
[2020-08-05] MEDS: INSULIN LISPRO 100 UNIT/1 ML 3ML VIAL SQ SCH ×4 (07:30→20:07)
[2020-08-05 07:50] LABS: ALANINE AMINOTRANSFERASE 11 IU/L (0-55); ALBUMIN 3.5 g/dL (3.5-5.0); ALBUMIN/GLOBULIN RATIO 1.3 (0.8-2.0); ALKALINE PHOSPHATASE 40 IU/L (40-150); ANION GAP 12.7 mmol/L (8-16); BLOOD UREA NITROGEN 23 mg/dL (7-26); BUN/CREATININE RATIO 24 (6-25); CARBON DIOXIDE 33 mmol/L (22-29); CHLORIDE 102 mmol/L (98-107); CREATININE, SERUM 0.97 mg/dL (0.72-1.25); EST GLOMERULAR FILTRATION RATE > 60 ML/MIN (60-); GLUCOSE 97 mg/dL (74-118); POTASSIUM 3.7 mmol/L (3.5-5.1); SODIUM 144 mmol/L (136-145)
[2020-08-05 08:20] VITALS: BP_SYST 106; BP_SYST 147; BP_DIAS 56; BP_DIAS 80
[2020-08-05 08:22] VITALS: BP 147/80
[2020-08-05] MEDS: FUROSEMIDE 40 MG TAB PO SCH (08:32)
[2020-08-05] MEDS: VITAMIN D3 PO SCH (08:32)
[2020-08-05] MEDS: ENOXAPARIN SOD INJ 40 MG/0.4 ML SYR SC SCH ×2 (08:32→16:07)
[2020-08-05] MEDS: CALCIUM CARBONATE PO SCH (08:32)
[2020-08-05] MEDS: ASPIRIN 81 MG ENTERIC COATED PO SCH (08:32)
[2020-08-05] MEDS: ESCITALOPRAM OXALATE 10 MG TAB PO SCH (08:32)
[2020-08-05] MEDS: DEXAMETHASONE SOD PHOS INJ 4 MG/ML VIAL IV SCH (08:32)
[2020-08-05] MEDS: OXYBUTYNIN CHLORIDE XL 5 MG TAB PO SCH (08:32)
--- NOTE | 2020-08-05 11:59 | Progress Note ---
DATE: SUBJECTIVE: The patient is afebrile. He is walking with assistance and with a walker. PHYSICAL EXAMINATION: VITAL SIGNS: Blood pressure is 147/80, saturation is 98% on 2 L and the pulse is 89. HEENT: Shows no facial swelling or erythema. LYMPHATIC: Shows no submandibular, cervical, or supraclavicular adenopathy. CARDIAC: Reveals regular rate and rhythm with normal S1 and S2. LUNGS: Auscultation of lungs reveals rhonchorous breath sounds bilaterally. There is no wheezing. ABDOMEN: Soft and nontender. There is no rebound or guarding. EXTREMITIES: Shows 2 to 3+ leg edema. IMPRESSION: 1. COVID pneumonia and viral infection. 2. Metastatic prostate cancer with bony metastases. 3. Diabetes. 4. Chronic lymphedema. PLAN: 1. Continue oxygen. 2. Complete antibiotics. 3. Physical therapy. 4. Discussed disposition with Dr. Osorio and Case Management. MD FARHAT Yeung/SHAY /[id number]
[2020-08-05] MEDS: CEFTRIAXONE SOD 1 GM/NS 50 ML 50 ML IV SCH (12:23)
--- NOTE | 2020-08-05 12:58 | NUR ---
ORDER RECEIVED FOR HOME HEALTH FOR SN/PT/OT EVAL AND TREAT. CALL TO THE PT. DISCUSSED HOME HEALTH CHOICE. STATES HE IS ON SERVICE W [facility]. CALL TO [employer] [facility] @ OFF: [phone] / FAX: [phone]. SPOKE W KRZYSZTOF. STATES THE PT IS NOT ON THEIR SERVICE, BUT HIS JESSE IS. REQUESTED REFERRAL BE FAXED OVER FOR REVIEW. REFERRAL WAS FAXED. IMM LETTER EXPLAINED TO PT. PT VERBALIZED UNDERSTANDING. IMM LETTER SIGNED. COPY TO PT AND COPY TO CHART.
[2020-08-05] MEDS: REMDESIVIR 100MG/NS 100ML 100 MG IV SCH (13:10)
--- NOTE | 2020-08-05 13:54 | Progress Note ---
DATE: 08/05/2020 SUBJECTIVE: The patient is seen in bed with improved shortness of breath and wheezing. No events noted overnight. PHYSICAL EXAMINATION: VITAL SIGNS: Temperature 97.7, pulse is 89, respirations 16, blood pressure 147/80, pulse ox is 98% on 2 L of nasal cannula. GENERAL: No acute distress. HEENT: Normocephalic, atraumatic. NECK: Supple. LUNGS: Decreased breath sounds. CARDIOVASCULAR: Regular rate and rhythm. GI: Soft and nontender, obese. NEURO: Alert, awake, oriented x3. MUSCULOSKELETAL: Moves all extremities. 2+ edema in the lower extremities. SKIN: Dry with discoloration in the lower extremities, chronic. PSYCH: Calm and pleasant. LABORATORY DATA: WBC 8.97, hemoglobin 12.5, hematocrit 38.5, platelet 167. Sodium 144, potassium 3.7, CO2 of 33, creatinine 0.97, estimated GFR is greater than 50, AST 17, ALT 11. IMPRESSION: 1. COVID-19 pneumonia. Continue Rocephin, azithromycin, remdesivir and dexamethasone per ID and Pulmonology. 2. Syncope with recurrent falls. CT brain and C-spine negative for acute process. Reports is feeling stronger, and working with physical therapy daily. 3. Acute on chronic respiratory distress. Oxygen dependent. Continue nebs p.r.n. 4. Diabetes type 2. Continue sliding scale insulin. 5. Prostate cancer with mets to the bone. We will continue oral chemotherapy and follow up with his oncologist at [facility]. 6. Generalized edema. Echo preliminary with EF of 45 to 50%. BNP 20. Continue Lasix. He will follow up with his media consultant outside sales. 7. History of sleep apnea. Continue CPAP at night. 8. Depression. Continue home medications. 9. Morbid obesity with BMI of 43. Lifestyle modification discussed. 10. Deep vein thrombosis prophylaxis. Lovenox subcu. PLAN: To continue current treatment for COVID. Case management has been consulted for home health and physical therapy. Anticipate discharge home likely tomorrow. Dictated by TRENA Wiliknson Yiching Pedro Pablo Osorio MD MY/MODL /[id number] Seen and examined on 08/05/2020. Agree with the findings and plan as documented by TRENA Zazueta. SURINDER
--- NOTE | 2020-08-05 14:01 | NUR ---
RECEIVED CALL BACK FROM [facility]. STATES THEY ARE NOT IN NETWORK [facility]. STATES THE PT WOULD HAVE TO PAY OUT OF POCKET FOR HIS CARE. CALL THE THE PT TO INFORM. STATES HE WOULD LIKE TO USE [facility] @ OFF: [phone] / FAX: [phone] FAXED REFERRAL TO [facility]
--- NOTE | 2020-08-05 16:39 | NUR ---
INFECTIOUS DISEASE CONSULT NOTE DR. JOSSY RUEDA HPI: very pleasant 75 year old male who reported fatigue and maliase for the last approx 8 days. The pt reports falling and hitting his right elbow, with not ed bruising after being "weak". The patient reported dizziness and "blacking out." He was found to be COVID positive. Denies prior COVID positive test. PMH: Bone cancer currently on Chemo, T2DM, Obesity, HTN ROS: + fatigue, SOB, Cough ALL 14 POINT ROS NEG UNLESS OTHERWISE NOTED PHYSICAL EXAM: VS: per chart GENERAL: awake, alert HEENT: normocephalic atraumatic CV: s1. s2, no s3, s4 CHEST: rhonchi, diminished, on oxygen ABD: obese, soft, non-tender EXT: moves all, edema, no joint swelling PSYCH: intact, no anxiety LABS: per chart RADIOLOGY: per chart IMPRESSION: COVID 19 Cancer currently on chemo HTN Obesity T2DM Hypoxia PLAN: RMSV, Rocephin, Azithromycin Vitamins, Decadron Supportive care currently on 2LPM n/c can evaluate for home oxygen. Must be able to ambulate to the bathroom and back and not desat <91% on 4LPM or less. RMSV ATTESTATION REMDESIVIR discussed with patient and daughter. EUA information provided to the patient. The patient understands that RMSV is a drug approved by the FDA for maryuri rgency use for the treatment of COVID 19. He understands at anytime he can stop the treatment. All questions were addressed. Randa Zhong MSN, BRAND ACTIVATION MANAGER, AGACNP-BC discussed with Jossy Rueda M.D
[2020-08-05 20:00] VITALS: BP 136/81
[2020-08-05] MEDS: PRAMIPEXOLE DIHYDROCHLORIDE 1 MG TAB PO SCH (20:07)
[2020-08-05] MEDS: HYDROCODONE/APAP 10MG-325MG TAB PO PRN (20:08)
[2020-08-05 21:00] VITALS: BP 136/81
[2020-08-06] VITALS: BP 134/75
[2020-08-06 04:00] VITALS: BP 150/76
[2020-08-06] MEDS: FAMOTIDINE 20 MG TAB PO SCH (04:10)
[2020-08-06] MEDS: NYSTATIN SUSPENSION 5 ML UDC PO SCH ×3 (04:10→13:30)
[2020-08-06] MEDS: INSULIN LISPRO 100 UNIT/1 ML 3ML VIAL SQ SCH ×2 (07:30→11:30)
[2020-08-06 08:00] VITALS: BP 137/82
[2020-08-06] MEDS: DEXAMETHASONE SOD PHOS INJ 4 MG/ML VIAL IV SCH (08:02)
[2020-08-06] MEDS: ASPIRIN 81 MG ENTERIC COATED PO SCH (08:02)
[2020-08-06] MEDS: OXYBUTYNIN CHLORIDE XL 5 MG TAB PO SCH (08:02)
[2020-08-06] MEDS: ESCITALOPRAM OXALATE 10 MG TAB PO SCH (08:03)
[2020-08-06] MEDS: ENOXAPARIN SOD INJ 40 MG/0.4 ML SYR SC SCH (08:03)
[2020-08-06] MEDS: FUROSEMIDE 40 MG TAB PO SCH (08:03)
[2020-08-06] MEDS: VITAMIN D3 PO SCH (09:00)
[2020-08-06] MEDS: CALCIUM CARBONATE PO SCH (09:00)
[2020-08-06 09:06] VITALS: BP 137/82
--- NOTE | 2020-08-06 09:41 | NUR ---
INFECTIOUS DISEASE CONSULT NOTE DR. JOSSY UREDA HPI: very pleasant 75 year old male who reported fatigue and maliase for the last approx 8 days. The pt reports falling and hitting his right elbow, with not ed bruising after being "weak". The patient reported dizziness and "blacking out." He was found to be COVID positive. Denies prior COVID positive test. PMH: Bone cancer currently on Chemo, T2DM, Obesity, HTN ROS: + fatigue, SOB, Cough ALL 14 POINT ROS NEG UNLESS OTHERWISE NOTED PHYSICAL EXAM: VS: per chart GENERAL: awake, alert HEENT: normocephalic atraumatic CV: s1. s2, no s3, s4 CHEST: rhonchi, diminished, on oxygen ABD: obese, soft, non-tender EXT: moves all, edema, no joint swelling PSYCH: intact, no anxiety LABS: per chart RADIOLOGY: per chart IMPRESSION: COVID 19 Cancer currently on chemo HTN Obesity T2DM Hypoxia PLAN: RMSV, Rocephin, Azithromycin Vitamins, Decadron Supportive care currently on 2LPM n/c and sometimes without oxygen Can evaluate for home oxygen. Must be able to ambulate to the bathroom and back and not desat <91% on 4LPM or less. Can discharge home once oxygen is set up. Randa Zhong MSN, ZINC SKIMMER, AGACNP-BC discussed with Jossy Rueda M.D
[2020-08-06] MEDS ORDERED: DEXAMETHASONE4 MG PO (11:16)
[2020-08-06] MEDS ORDERED: ASPIRIN EC81 MG PO (11:20)
[2020-08-06 12:00] VITALS: BP 144/75
[2020-08-06] MEDS: CEFTRIAXONE SOD 1 GM/NS 50 ML 50 ML IV SCH (13:30)
[2020-08-06] MEDS: REMDESIVIR 100MG/NS 100ML 100 MG IV SCH (14:32)
[2020-08-06 16:00] VITALS: BP 132/69
--- NOTE | 2020-08-06 16:03 | NUR ---
Discharge education provided. Discharge packet given. Verbalized understanding regarding follow-up appointment. Home prescription medication given. PIV to right hand removed. Catheter intact, no bleeding noted. Transported patient via wheelchair to private vehicle. Home medications given back to patient. All personal belongings given to patient.
--- NOTE | 2020-08-06 22:56 | Discharge Summary ---
PRIMARY CARE PHYSICIAN: Dr. Smith at [facility]. FINAL DISCHARGE DIAGNOSES: 1. COVID-19 pneumonia. 2. Syncope with recurrent falls due to debility. 3. [id number] respiratory distress. 4. Diabetes type 2. 5. Prostate cancer with metastasis to the bone. 6. Generalized edema. 7. History of sleep apnea. 8. Depression. 9. Morbid obesity. CONSULTANTS: 1. Dr. Killian, technical instructor course developer. 2. Dr. Cade with Infectious Disease. PROCEDURES: None. HISTORY: Per HPI. HOSPITAL COURSE: This is a 75-year-old male, who presented to the ER with complaints of increased shortness of breath and generalized weakness with recurrent falls. Testing revealed that he has COVID-19 with hypoxia and respiratory distress. Infectious Disease and technical instructor course developer have been consulted and was started on Rocephin, azithromycin, remdesivir, and dexamethasone. He remained afebrile, shortness of breath continued to improve some. CT brain and C-spine for the fall were negative for acute process. However, showed some skeletal lesion, which the patient reports is aware of his metastatic prostate cancer. He is following up with Dr. Kelly at [facility] and continued on chemotherapy and oral drugs. X-ray of the elbow and pelvis was negative for acute fracture. He is feeling much better today, afebrile, able to walk around with a walker with minimal to no assist. He will be discharged home to complete his 10 days of dexamethasone and we will arrange home O2, as his O2 with activity is down to 87%. PHYSICAL EXAMINATION: VITAL SIGNS: Temperature 97.8, pulse is 83, respirations 20, blood pressure 144/75, and pulse ox 98% on 2 L of nasal cannula. GENERAL: No acute distress. HEENT: Normocephalic and atraumatic. NECK: Supple. LUNGS: With decreased breath sounds. CARDIOVASCULAR: Regular rate and rhythm. GI: Soft and nontender. Obese. NEUROLOGIC: Alert, awake, and oriented x3. MUSCULOSKELETAL: Moves all extremities. SKIN: Dry with some discoloration at the lower extremity and right elbow. PSYCH: Calm and pleasant. CONDITION AT DISCHARGE: Stable and improved. DISCHARGE MEDICATIONS: Please see medication reconciliation list. FOLLOWUP: Follow up with PCP, oncologist, and ID in 1 to 2 weeks. Advised on self-quarantining for 2 weeks and repeat COVID test. TIME SPENT: Total discharge time is 31 minutes. Dictated by TRENA Wilkinson [place] Pedro Pablo Osorio MD MY/MODL /[id number] cc: Hector Smith MD Seen and examined on 08/06/2020. Agree with the findings and plan as documented by TRENA Zazueta. DAVIDD
== END 2020-08-06 16:03 | disposition home or self-care (01) | DRG 177 ==
LOC: ER 14:15 → ERHOLD 16:21 → MED/SURG3 18:35 → OBSVTOIN 08-02 16:11
PROVIDERS: ADMIT Internal Medicine; ATTEND Internal Medicine
PROC: XW033E5 Introduction of Remdesivir Anti-infective into Peripheral Vein, Percutaneous Approach, New Technology Group 5 (ICD-10-PCS; principal; 2020-08-02)
PROC: XW033F5 Introduction of Other New Technology Therapeutic Substance into Peripheral Vein, Percutaneous Approach, New Technology Group 5 (ICD-10-PCS; 2020-08-03)
DX: U07.1 COVID-19 (principal); J12.89 Other viral pneumonia; C79.51 Secondary malignant neoplasm of bone; Z68.41 Body mass index [BMI] 40.0-44.9, adult; R06.03 Acute respiratory distress; E11.9 Type 2 diabetes mellitus without complications; R55 Syncope and collapse; S50.01XA Contusion of right elbow, initial encounter; M25.552 Pain in left hip; M25.551 Pain in right hip; J44.9 Chronic obstructive pulmonary disease, unspecified; I10 Essential (primary) hypertension; C61 Malignant neoplasm of prostate; G47.30 Sleep apnea, unspecified; Z91.81 History of falling; Z87.891 Personal history of nicotine dependence; Z99.81 Dependence on supplemental oxygen; W01.0XXA Fall on same level from slipping, tripping and stumbling without subsequent striking against object, initial encounter; Y92.019 Unspecified place in single-family (private) house as the place of occurrence of the external cause; F32.9 Major depressive disorder, single episode, unspecified; E66.9 Obesity, unspecified; R09.02 Hypoxemia; I89.0 Lymphedema, not elsewhere classified; E66.01 Morbid (severe) obesity due to excess calories; Z79.82 Long term (current) use of aspirin; Z79.84 Long term (current) use of oral hypoglycemic drugs
CPT/HCPCS: 36415; 70450; 71045; 72125; 72170; 80053; 80061; 81001; 82550; 82553; 82948; 83735; 83880; 84484; 85025; 85610; 85730; 87040; 87086; 93005; 93306; 94640; 97139; 99284; G0378; J0456; J0696; J1100; J1650; J2001; J7050; J7512